=== PATIENT | male | born 1955 | race Hispanic/Latino ===

== ENCOUNTER → 2017-02-11 | Outpatient (CLI) | payer BC | END | disposition home or self-care (01) | LOC: GMAM 12:15 | PROVIDERS: ATTEND Family Medicine | DX: E29.1 Testicular hypofunction (principal) ==

== ENCOUNTER → 2017-08-11 | Outpatient (CLI) | payer BC | END | disposition home or self-care (01) | LOC: GMAM 10:32 | PROVIDERS: ATTEND Family Medicine | DX: E29.1 Testicular hypofunction (principal) ==

== ENCOUNTER → 2017-08-14 | Outpatient (CLI) | payer BC | END | disposition home or self-care (01) | LOC: GMAM 13:30 | PROVIDERS: ATTEND Family Medicine | DX: R53.83 Other fatigue (principal) ==

== ENCOUNTER → 2018-10-18 | Outpatient (CLI) | payer BC | LOC: GMAM 11:35 | PROVIDERS: ATTEND Family Medicine | DX: Z00.00 Encounter for general adult medical examination without abnormal findings (principal) ==

== ENCOUNTER → 2018-10-25 | Outpatient (CLI) | payer BC | LOC: GMAM 14:17 | PROVIDERS: ATTEND Family Medicine | DX: E55.9 Vitamin D deficiency, unspecified (principal) ==

== ENCOUNTER → 2019-05-03 | Outpatient (CLI) | payer BC | LOC: GMAM 12:26 | PROVIDERS: ATTEND Family Medicine | DX: E55.9 Vitamin D deficiency, unspecified (principal); E78.1 Pure hyperglyceridemia ==

== ENCOUNTER → 2019-05-06 | Outpatient (CLI) | payer OTHER | DX: R82.90 Unspecified abnormal findings in urine (principal) ==

== ENCOUNTER → 2019-12-07 | Outpatient (CLI) | payer OTHER | LOC: GMAM 10:50 | PROVIDERS: ATTEND Family Medicine | DX: E29.1 Testicular hypofunction (principal) ==

== ENCOUNTER → 2020-03-22 | Outpatient (CLI) | payer OTHER | LOC: GMAM 11:33 | PROVIDERS: ATTEND Family Medicine | DX: E29.1 Testicular hypofunction (principal) ==

== ENCOUNTER → 2020-04-25 | Outpatient (CLI) | payer OTHER | LOC: GMAM 10:17 | PROVIDERS: ATTEND Family Medicine | DX: E29.1 Testicular hypofunction (principal); R73.9 Hyperglycemia, unspecified ==

== ENCOUNTER → 2020-05-07 | Outpatient (CLI) | payer OTHER | LOC: LAB.O 14:55 | PROVIDERS: ATTEND Family Medicine | DX: D45 Polycythemia vera (principal) ==

== ENCOUNTER → 2020-06-06 | Outpatient (CLI) | payer OTHER | LOC: GMAM 10:14 | PROVIDERS: ATTEND Family Medicine | DX: E29.1 Testicular hypofunction (principal) ==